=== PATIENT | female | born 1970 | race Caucasian/White ===

== ENCOUNTER 2019-10-23 09:20 | Emergency (ER) | payer BC ==
--- NOTE | 2019-10-23 10:32 | ED ---
Neck Pain - HPI Summary HPI Summary: This patient is a 49 y/o female presenting to [facility] c/o neck pain that began 2 weeks ago. Patient denies any recent trauma. However, she reports she moved a couch 3 days ago but this is not unusual for her. She describes neck pain as "tension pain" and pain has been radiating down her right arm for the past 1.5 days now. Patient reports her right arm pain is aggravated with rest and alleviated with movement. Patient has been using heating pads with no relief. She has been taking Ibuprofen for the past few days with mild relief. Patient also took 10/325 Percocet and 600 mg ibuprofen 3 days ago with relief and was able to sleep. She notes recent stress, moving to another house, her children not speaking to her, and having no counselor in the area. Denies any fever, headache, nausea, vomiting. Patient reports having sinus "issues" recently and has been using her sinus spray with relief. PMHx: seasonal allergies. Denies tobacco and drug use. She states occasional alcohol use. 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 Home Medications Medication Instructions Recorded Confirmed Type NK [No Home Medications Reported] 10/23/19 10/23/19 History - History of Current Complaint Chief Complaint: EDNeckComplaint Stated Complaint: NECK/SHOULDER PAIN EXACERBATION PER PT Time Seen by Provider: 10/23/19 10:20 Hx Obtained From: Patient Onset/Duration Of Injury/Symptoms: Weeks Mechanism Of Injury: No Known Trauma Timing: Lasting Weeks Onset/Duration: Started weeks ago Severity Currently: Severe Pain Intensity: 8 Pain Scale Used: 0-10 Numeric Location: Discrete At: - base of bilateral neck, Radiates To: - right arm Character: Other: - "tension pain" Aggravating Factors: Other: - rest Alleviating Factors: Other: - movement of arm Associated Signs & Symptoms: Positive: Negative - Allergies/Home Medications Allergies/Adverse Reactions: Allergies Allergy/AdvReac Type Severity Reaction Status Date / Time No Known Allergies Allergy Verified 10/23/19 10:34 Home Medications: Home Medications Hydrocodone/Acetaminophen [[place] 5-325 Tablet] 1 each PO Q6H PRN #10 tablet MDD 4 10/23/19 [Rx] Ibuprofen TAB* [Motrin TAB* 600 MG] 600 mg PO Q8H PRN #30 tab 10/23/19 [Rx] methylPREDNISolone [Medrol Dosepak 4 MG*] 0 mg PO .SEE ROXANA INSTRUCTION #1 roxana [Rx] PMH/Surg Hx/FS Hx/Imm Hx Previously Healthy: No - seasonal allergies Endocrine/Hematology History: Denies: Hx Diabetes Cardiovascular History: Denies: Hx Hypertension - Surgical History Surgical History: Yes Surgery Procedure, Year, and Place: Appendectomy. Torn ACL Infectious Disease History: No Infectious Disease History: Denies: Traveled Outside the [place] in Last 30 Days - Family History Known Family History: Positive: Cardiac Disease - Father with triple bypass Family History: father with stroke. - Social History Alcohol Use: Occasionally Substance Use Type: Reports: None Smoking Status (MU): Never Smoked Tobacco Review of Systems Negative: Fever ENT: Other - POSITIVE: sinus issues Negative: Vomiting, Nausea Musculoskeletal: Other - POSITIVE: neck pain, right arm pain Negative: Headache Psychological: Other - POSITIVE: recent stress All Other Systems Reviewed And Are Negative: Yes Physical Exam - Summary Physical Exam Summary: VITAL SIGNS: Reviewed. GENERAL: Patient is a well-developed and nourished female who is lying comfortable in the stretcher. Patient is not in any acute respiratory distress. HEAD AND FACE: No signs of trauma. No ecchymosis, hematomas or skull depressions. No sinus tenderness. EYES: PERRLA, EOMI x 2, No injected conjunctiva, no nystagmus. EARS: Hearing grossly intact. Ear canals and tympanic membranes are within normal limits. MOUTH: Oropharynx within normal limits. NECK: Supple, trachea is midline, no adenopathy, no JVD, no carotid bruit, no c- spine tenderness, neck with full ROM. CHEST: Symmetric, no tenderness at palpation LUNGS: Clear to auscultation bilaterally. No wheezing or crackles. CVS: Regular rate and rhythm, S1 and S2 present, no murmurs or gallops appreciated. ABDOMEN: Soft, non-tender. No signs of distention. No rebound, no guarding, and no masses palpated. Bowel sounds are normal. EXTREMITIES: FROM in all major joints, no edema, no cyanosis or clubbing. NEURO: Alert and oriented x 3. No acute neurological deficits. Speech is normal and follows commands. SKIN: Dry and warm Triage Information Reviewed: Yes Vital Signs On Initial Exam: Initial Vitals Temp Pulse Resp BP Pulse Ox 98.2 F 88 16 141/83 98 10/23/19 09:22 10/23/19 09:22 10/23/19 09:22 10/23/19 09:22 10/23/19 09:22 Vital Signs Reviewed: Yes Procedures - Sedation Patient Received Moderate/Deep Sedation with Procedure: No Diagnostics - Vital Signs Vital Signs Temp Pulse Resp BP Pulse Ox 10/23/19 10:23 97.7 F 10/23/19 10:12 88 133/86 98 10/23/19 09:22 98.2 F 88 16 141/83 98 - Laboratory Lab Statement: Any lab studies that have been ordered have been reviewed, and results considered in the medical decision making process. - CT Cervical spine CT CT Interpretation Completed By: Radiologist Summary of CT Findings: IMPRESSION: Varying degrees of multilevel spondylosis results in mild spinal canal stenosis and moderate bilateral neural foraminal stenosis at C5-C6. Dr. Contreras has reviewed this report. Re-Evaluation - Re-Evaluation First Eval Re-Evaluation Time: 12:27 Comment: Reviewed results with patient. She will be discharged home. Neck Course/Dx - Course Assessment/Plan: This patient is a 49 y/o female presenting to [facility] c/o neck pain that began 2 weeks ago. Patient denies any recent trauma. However, she reports she moved a couch 3 days ago but this is not unusual for her. She describes neck pain as "tension pain" and pain has been radiating down her right arm for the past 1.5 days now. Patient reports her right arm pain is aggravated with rest and alleviated with movement. Patient has been using heating pads with no relief. She has been taking Ibuprofen for the past few days with mild relief. Patient also took 10/325 Percocet and 600 mg ibuprofen 3 days ago with relief and was able to sleep. She notes recent stress, moving to another house, her children not speaking to her, and having no counselor in the area. Denies any fever, headache, nausea, vomiting. Patient reports having sinus "issues" recently and has been using her sinus spray with relief. PMHx: seasonal allergies. Denies tobacco and drug use. She states occasional alcohol use. 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 C spine CT IMPRESSION: Varying degrees of multilevel spondylosis results in mild spinal canal stenosis and moderate bilateral neural foraminal stenosis at C5-C6. In the ED course the patient was given Decadron, Toradol, and [place] for the pain. At this point I discussed all the findings and test results with the patient. Patient was instructed to return to the emergency room immediately if any of the symptoms return or worsen. Patient understands and agrees. Patient is able to ambulate freely w/o aid or limp in the ER. Plan of care was discussed with the patient and patient understands and agrees. All questions were answered at patient satisfaction. There were no further complaints or concerns. Neurological exam before discharge: Patient is alert and oriented x 3. No acute neurological deficits. Patient is hemodynamically stable. Patient is to follow up with primary care physician in the next 2 3 days. She understands and agrees. - Diagnoses Provider Diagnoses: Neck pain Discharge ED - Sign-Out/Discharge Documenting (check all that apply): Patient Departure - Discharge home - Discharge Plan Condition: Stable Disposition: HOME Prescriptions: Hydrocodone/Acetaminophen [[place] 5-325 Tablet] 1 each PO Q6H PRN #10 tablet MDD 4 PRN Reason: Pain - Severe Ibuprofen TAB* [Motrin TAB* 600 MG] 600 mg PO Q8H PRN #30 tab PRN Reason: Pain - Moderate methylPREDNISolone [Medrol Dosepak 4 MG*] 0 mg PO .SEE ROXANA INSTRUCTION #1 roxana Patient Education Materials: Neck Pain (ED) Referrals: [facility] [Outside] Additional Instructions: FOLLOW UP WITH YOUR PRIMARY CARE PROVIDER IN 2-3 DAYS. If you don't have one, please follow up with [facility]. RETURN TO THE ED FOR ANY NEW OR WORSENING SYMPTOMS. - Attestation Statements Document Initiated by Scribe: Yes Documenting Scribe: Lili Jacobson Provider For Whom Scribe is Documenting (Include Credential): Magdy Contreras MD Scribe Attestation: Lili Murguia scribed for Magdy Contreras MD on 10/23/19 at 1229. Status of Scribe Document: Ready
[2019-10-23] MEDS ORDERED: Dexamethasone IV* 4 MG/ML 1 ML (4 MG) IM ONE (12:18)
[2019-10-23] MEDS ORDERED: Ketorolac *IM* INJ* 60 MG/2 ML VIAL IM ONE (12:18)
[2019-10-23] MEDS ORDERED: HYDROcodone/ACETAMIN 5-325 MG* 1 TAB PO ONE (12:18)
[2019-10-23 12:36] VITALS: BP 166/79
== END 2019-10-23 12:35 | disposition home or self-care (01) ==
LOC: ED 09:20
DX: M54.2 Cervicalgia (principal)
CPT/HCPCS: 72125; 96372; 99282; J1100; J1885